=== PATIENT | male | born 1940 | race Caucasian/White ===

== ENCOUNTER → 2019-01-14 | Outpatient (REF) | LOC: M LAB LCGH 15:13 | PROVIDERS: ATTEND Nurse Practitioner Family | DX: L57.0 Actinic keratosis (principal) ==

== ENCOUNTER → 2019-08-28 | Outpatient (CLI) | payer MEDICARE ==
--- NOTE | 2019-08-29 04:11 | REP ---
Clinical: Hypertension and chronic medical renal disease. Technique: Christopher scale and color Doppler evaluation of the kidneys and renal vasculature using curved array transducer. Findings: Right kidney measures 10.8 x 6.0 x 5.1 cm with 2.7 cm simple peripelvic cyst, and 1.4 cm complex septated peripelvic cyst with mural echogenic focus. No hydronephrosis. Left kidney measures 11.5 x 4.9 x 5.6 cm and includes 3.1 cm and 1.6 cm simple peripelvic cysts and 5 mm cortical cyst. No hydronephrosis. Prostate gland demonstrates parenchymal calcifications and measures 4.4 x 3.5 x 3.5 cm (28 ml). Color Doppler evaluation of the renal vasculature demonstrates normal arterial wave patterns, velocities, renal aortic ratios, resistive indices and the acceleration time. No sonographic evidence for renal arterial stenosis noted. Renal vein is patent. Right Kidney: Peak arterial velocity: 85.7 cm/sec . Renal aortic ratio: 1.1 . Resistive indices: 0.70 - 0.72 . Acceleration times: 0.020 - 0.041 . Left kidney: Peak arterial velocity: 107.7 cm/sec . Renal aortic ratio: 1.4 . Resistive indices: 0.70 - 0.72 . Acceleration times: 0.025 - 0.031 . Impression: 1. Kidneys demonstrate simple and complex cysts as noted above which may warrant 6 - 9 month follow-up ultrasound or pre and postcontrast CT of the abdomen. 2. No sonographic evidence to suggest renal arterial stenosis. Electronically Signed by Hunter Green MD 08/29/2019 04:03 A
== END ==
LOC: M RAD 08:25
PROVIDERS: ATTEND Internal Medicine Nephrology
DX: I15.0 Renovascular hypertension (principal); N18.3 Chronic kidney disease, stage 3 (moderate); N28.1 Cyst of kidney, acquired